=== PATIENT | male | born 1950 | race Caucasian/White ===

== ENCOUNTER 2024-10-11 06:21 | Day surgery (SDC) | payer OTHER, SELFPAY | END 2024-10-11 09:35 | disposition home or self-care (01) | LOC: GI 06:21 | PROVIDERS: ATTENDING PHYSICIAN Surgery | DX: Z12.11 Encounter for screening for malignant neoplasm of colon (principal); K63.5 Polyp of colon; K55.20 Angiodysplasia of colon without hemorrhage; K57.30 Diverticulosis of large intestine without perforation or abscess without bleeding; Z86.0101 Personal history of adenomatous and serrated colon polyps | CPT/HCPCS: 45380; 88305 ==

== ENCOUNTER → 2024-12-22 06:59 | Outpatient (REF) | payer OTHER, SELFPAY | LOC: RAD 06:59 | PROVIDERS: ATTENDING PHYSICIAN Specialist; FAMILY PHYSICIAN Internal Medicine | DX: N40.1 Benign prostatic hyperplasia with lower urinary tract symptoms (principal); N39.0 Urinary tract infection, site not specified | CPT/HCPCS: 76770 ==